=== PATIENT | female | born 1960 | race Caucasian/White ===

== ENCOUNTER 2022-04-05 09:15 | Emergency (ER) | payer OTHER, BC ==
[2022-04-05 09:50] VITALS: PULSE 68
[2022-04-05 10:23] VITALS: BP 152/74
[2022-04-05 10:42] LABS: ANION GAP 7.6 meq/L (7-15); CHLORIDE,CL 103 mmol/L (98-107); SODIUM,NA 140 mmol/L (136-145)
[2022-04-05] MEDS ORDERED: Ketorolac 30 MG/ML SDV IM ONE (10:47)
[2022-04-05] MEDS ORDERED: Bacitracin/Neomycin/Polymyxin B Oint 0.9 GM U/D Packet TOP ONE (11:17)
== END 2022-04-05 12:00 | disposition home or self-care (01) ==
LOC: LL.ED 09:15
DX: S06.0X0A Concussion without loss of consciousness, initial encounter (principal); S01.01XA Laceration without foreign body of scalp, initial encounter; W20.8XXA Other cause of strike by thrown, projected or falling object, initial encounter; Y99.0 Civilian activity done for income or pay
CPT/HCPCS: 12001; 36415; 70450; 72125; 80053; 85025; 96372; 99284-25; J1885